=== PATIENT | male | born 1950 | race African-American/Black ===

== ENCOUNTER 2023-06-08 19:19 | Inpatient (IN) | payer OTHER, MEDICARE ==
[~2023-06-08 19:19] MED LIST: Iopamidol-370 76% 500 ML MDV (1 ML CHARGE) ONE
[2023-06-08] MEDS ORDERED: Sodium Chloride 0.9% 100 ML ONE (19:51)
[2023-06-08] MEDS ORDERED: Cefepime 2 GM VIAL ONE (19:51)
[2023-06-08 19:53] LABS: Hematocrit 29.2 % (42.0-52.0); Hemoglobin 9.3 g/dL (14.0-18.0); Manual Diff?? YES; Mean Corpuscular HGB CONC 31.8 g/dL (32.0-36.0); Mean Corpuscular Hemoglobin 25.1 pg (27.0-31.0); Mean Corpuscular Volume 78.7 fl (78.0-98.0); Platelet Count 163 10x3/uL (130-400); RBC Distribution Width 20.3 % (11.5-14.5); Red Blood Cell (RBC) Count 3.71 mill/uL (4.70-6.10); White Blood Cell (WBC) Count 13.5 10x3/uL (4.8-10.8)
[2023-06-08 19:57] LABS: Delete Auto Diff?? YES
[2023-06-08 20:01] LABS: Bacteria/HPF 4+ HPF (None Seen); CAUTI Indications for Culture Fever or rigors; Squamous Epithelial 0-3 HPF (0-3); WBC/HPF Greater Than 50 HPF (0-3)
[2023-06-08 20:08] LABS: Bilirubin Negative (Negative); Blood, Urine 2+ (Negative); Clarity Extra Turbid (Clear); Glucose, Urine (Dipstick) 500 mg/dL (Negative); Ketone, Urine Trace mg/dL (Negative); Leukocyte 500 Leu/uL (Negative); Nitrite Negative (Negative); Protein, Urine (Dipstick) 100 mg/dL (Neg-Trace); Specific Gravity, Urine 1.011 (1.002-1.036); Urobilinogen Normal mg/dL (Less than 2)
[2023-06-08 20:11] LABS: Urine Culture Reflex Yes Yes
[2023-06-08 20:17] LABS: ALT (SGPT) 29 U/L (8-55); AST (SGOT) 39 U/L (5-34); Albumin 3.3 g/dL (3.4-4.8); Alkaline Phosphatase 107 U/L (40-110); Anion Gap 15 mmol/L (10-20); BUN (Urea Nitrogen) 34 mg/dL (8.4-25.7); Bilirubin, Total 0.7 mg/dL (0.2-1.2); Calc. Creatinine Clearance 0 mL/min (70-130); Calcium 8.6 mg/dL (7.8-10.44); Carbon Dioxide 20 mmol/L (23-31); Chloride 108 mmol/L (98-107); Estimated GFR 30; Globulin 3.3 g/dL (2.4-3.5); Glucose 130 mg/dL (83-110); Potassium 4.3 mmol/L (3.5-5.1); Protein, Total 6.6 g/dL (5.8-8.1); Sodium 139 mmol/L (136-145)
[2023-06-08 20:21] LABS: Troponin I 0.129 ng/mL (< 0.028)
[2023-06-08 20:35] LABS: Anisocytosis SLIGHT = 6-15 cells HPF (0-5); Band 19 % (5-11); CellaVision Operator ID LAB.MJL; Hypochromia SLIGHT = 6-15 cells HPF (0-5); Large Platelets 5.1 % (0-5); Lymphocytes 2 % (21-51); Microcytosis SLIGHT = 6-15 cells HPF (0-5); Monocytes 3 % (0-10); Neutrophil 76 % (42-75); Ovalocytes SLIGHT = 2-5 cells HPF (0-1); Platelet Adequacy Comment Platelets Normal; Poikilocytosis MODERATE=16-30 cells HPF (0-5); Polychromasia MODERATE = 3-4 cells HPF (0-2); Schistocytes SLIGHT = 2-5 cells HPF (0-1); Target Cells SLIGHT = 2-5 cells HPF (0-1); Tear Drops SLIGHT = 2-5 cells HPF (0-1); Total Cell Count 99
[2023-06-08] MEDS ORDERED: Vancomycin 1 GM/200 ML (FROZEN) BAG ONE (20:36)
[2023-06-08] MEDS ORDERED: metroNIDAZOLE 500 MG (100 mL) BAG ONE (22:24)
[2023-06-08] MEDS ORDERED: Furosemide 20 MG (2 mL) VIAL ONE (22:24)
[2023-06-08] MEDS ORDERED: Clindamycin/D5W 600 mg/50 ml Premix Bag ONE (23:12)
[2023-06-08] MEDS ORDERED: Ondansetron ODT 4 MG TAB SL PRN (23:15)
[2023-06-08] MEDS ORDERED: Ondansetron PF 4 MG/2 ML Vial IVP PRN (23:15)
[2023-06-08] MEDS ORDERED: Acetaminophen 325 MG TAB PO PRN (23:15)
[2023-06-08] MEDS ORDERED: Clindamycin/D5W 900 MG in Premix 1 BAG IVPB SCH (23:30)
[2023-06-09] MEDS ORDERED: Piperacillin/Tazobactam 3.375 GM in Sodium Chloride 0.9% 100 ML IVPB SCH (01:15)
[2023-06-09 01:24] VITALS: BMI 40.6
[2023-06-09] MEDS ORDERED: Morphine 4 MG/ML VIAL SLOW IVP SCH (05:45)
[2023-06-09] MEDS: Piperacillin/Tazobactam 3.375 GM in Sodium Chloride 0.9% 100 ML IVPB SCH ×3 (06:09→21:02)
[2023-06-09 07:04] LABS: Hematocrit 27.7 % (42.0-52.0); Hemoglobin 8.6 g/dL (14.0-18.0); Manual Diff?? YES; Mean Corpuscular Hemoglobin 24.7 pg (27.0-31.0); Mean Corpuscular Volume 79.6 fl (78.0-98.0); Mean Platelet Volume 11.6 fL (7.4-10.4); Platelet Count 171 10x3/uL (130-400); Red Blood Cell (RBC) Count 3.48 mill/uL (4.70-6.10); White Blood Cell (WBC) Count 13.3 10x3/uL (4.8-10.8)
[2023-06-09 07:08] LABS: Hemoglobin A1c 5.9 % (4.0-6.0)
[2023-06-09 07:27] LABS: Anion Gap 20 mmol/L (10-20); BUN (Urea Nitrogen) 34 mg/dL (8.4-25.7); Calc. Creatinine Clearance 55 mL/min (70-130); Calcium 8.9 mg/dL (7.8-10.44); Carbon Dioxide 14 mmol/L (23-31); Chloride 109 mmol/L (98-107); Estimated GFR 29; Glucose 119 mg/dL (83-110); Magnesium 3.1 mg/dL (1.6-2.6); Phosphorus 2.2 mg/dL (2.3-4.7); Potassium 4.4 mmol/L (3.5-5.1); Sodium 139 mmol/L (136-145)
[2023-06-09 07:42] LABS: Delete Auto Diff?? YES
[2023-06-09] MEDS ORDERED: hydrALAZINE 20 MG/ML VIAL SLOW IVP PRN (08:02)
[2023-06-09] MEDS ORDERED: Ipratropium/Albuterol 3 ML NEB NEB PRN (08:05)
[2023-06-09 08:14] LABS: Anisocytosis SLIGHT = 6-15 cells HPF (0-5); Band 2 % (5-11); Burr Cells SLIGHT = 2-5 cells HPF (0-1); CellaVision Operator ID LAB.NR; Eosinophils 1 % (0-10); Hypochromia MODERATE=16-30 cells HPF (0-5); Lymphocytes 1 % (21-51); Macrocytosis SLIGHT = 6-15 cells HPF (0-5); Monocytes 3 % (0-10); Neutrophil 92 % (42-75); Platelet Adequacy Comment Platelets Normal; Poikilocytosis SLIGHT = 6-15 cells HPF (0-5); Polychromasia SLIGHT = 2-3 cells HPF (0-2); Schistocytes SLIGHT = 2-5 cells HPF (0-1); Target Cells SLIGHT = 2-5 cells HPF (0-1); Total Cell Count 100
[2023-06-09] MEDS: Tamsulosin HCl 0.4 MG CAP PO SCH (08:33)
[2023-06-09] MEDS ORDERED: NIFEdipine XL 30 MG ER.TAB PO SCH (09:00)
[2023-06-09] MEDS: hydrALAZINE 25 MG TAB PO SCH ×4 (09:21→21:00)
[2023-06-09] MEDS: Isosorbide Mononitrate 60 MG ER.TAB PO SCH (09:21)
[2023-06-09] MEDS: Vancomycin (BATCH) 1.75 GM in Premix 1 BAG IVPB SCH (10:16)
[2023-06-09 11:14] LABS: Troponin I 0.092 ng/mL (< 0.028)
[2023-06-09] MEDS ORDERED: PROPOFOL 20 ML ONE (11:48)
[2023-06-09] MEDS ORDERED: PHENYLEPHRINE-NS 100 MCG/ML 10 ML SYRINGE ONE (12:08)
[2023-06-09] MEDS: Morphine 2 MG/ML VIAL SLOW IVP PRN ×3 (14:15→21:40)
[2023-06-09] MEDS ORDERED: Lidocaine 1% PF 5 ML VIAL ONE (14:46)
[2023-06-09] MEDS ORDERED: Calcium Carbonate 500 MG ChewTAB PO PRN (15:02)
[2023-06-09] MEDS ORDERED: Ondansetron ODT 4 MG TAB PO PRN (15:02)
[2023-06-09] MEDS ORDERED: Ondansetron PF 4 MG/2 ML Vial IVP PRN (15:02)
[2023-06-09] MEDS ORDERED: Bupivacaine PF 0.5% 30 ML VIAL ONE (15:46)
[2023-06-09] MEDS ORDERED: EPINEPHrine 1 MG/ML VIAL ONE (15:46)
[2023-06-09] MEDS ORDERED: fentaNYL PF 100 MCG/2 ML SYRINGE ONE (16:03)
[2023-06-09] MEDS ORDERED: SODIUM PHOSPHATE IVPB SCH (16:15)
[2023-06-09] MEDS ORDERED: SODIUM CHLORIDE 0.9% IVPB SCH (16:15)
[2023-06-09] MEDS ORDERED: Ondansetron HCl/PF 4 MG/2 ML Vial IVP PRN (16:28)
[2023-06-09] MEDS ORDERED: Morphine Sulfate 2 MG/ML SYRINGE SLOW IVP PRN (16:28)
[2023-06-09] MEDS ORDERED: PACU-Morphine 4MG/ML VIAL SLOW IVP PRN (16:28)
[2023-06-09] MEDS ORDERED: HYDROmorphone 2 MG/ML VIAL SLOW IVP PRN (16:28)
[2023-06-09] MEDS ORDERED: Promethazine HCl 25 MG/ML VIAL IM PRN (16:28)
[2023-06-09] MEDS ORDERED: Ondansetron PF 4 MG/2 ML Vial ONE (16:29)
[2023-06-09] MEDS ORDERED: fentaNYL 50 mcg/mL 1 mL Vial ONE ×3 (16:55→17:12)
[2023-06-09] MEDS: Sucralfate 1 GM TAB PO SCH ×2 (17:50→21:00)
[2023-06-09 18:46] LABS: Anion Gap 15 mmol/L (10-20); BUN (Urea Nitrogen) 41 mg/dL (8.4-25.7); Calc. Creatinine Clearance 52 mL/min (70-130); Carbon Dioxide 17 mmol/L (23-31); Chloride 109 mmol/L (98-107); Estimated GFR 27; Glucose 109 mg/dL (83-110); Potassium 4.1 mmol/L (3.5-5.1); Sodium 137 mmol/L (136-145)
[2023-06-09] MEDS ORDERED: Dextrose 50% Abboject 50 ML SYRINGE SLOW IVP PRN (18:55)
[2023-06-09] MEDS ORDERED: Dextrose 5% in Water 1,000 ML IV PRN (18:55)
[2023-06-09] MEDS ORDERED: Glucagon 1 MG/ML KIT IM PRN (18:55)
[2023-06-09] MEDS ORDERED: HumaLOG 300 UNITS/3 ML VIAL SC PRN ×2 (18:55)
[2023-06-09] MEDS ORDERED: Sodium Bicarbonate Tab 325 MG TAB PO SCH (21:00)
[2023-06-09] MEDS: Acetaminophen 325 MG TAB PO PRN (21:03)
[2023-06-09] MEDS: NIFEdipine XL 30 MG ER.TAB PO SCH (21:34)
[2023-06-09] MEDS: Senokot S 8.6-50 MG TAB PO SCH (21:34)
[2023-06-10] MEDS: Morphine 2 MG/ML VIAL SLOW IVP PRN ×3 (02:45→21:18)
[2023-06-10 05:11] LABS: Hematocrit 27.1 % (42.0-52.0); Hemoglobin 8.5 g/dL (14.0-18.0); Manual Diff?? YES; Mean Corpuscular HGB CONC 31.4 g/dL (32.0-36.0); Mean Corpuscular Volume 79.7 fl (78.0-98.0); Mean Platelet Volume 10.2 fL (7.4-10.4); Platelet Count 167 10x3/uL (130-400); RBC Distribution Width 21.4 % (11.5-14.5); White Blood Cell (WBC) Count 13.1 10x3/uL (4.8-10.8)
[2023-06-10] MEDS: Piperacillin/Tazobactam 3.375 GM in Sodium Chloride 0.9% 100 ML IVPB SCH ×3 (05:42→21:20)
[2023-06-10 05:50] LABS: Delete Auto Diff?? YES
[2023-06-10 06:01] LABS: ALT (SGPT) 34 U/L (8-55); AST (SGOT) 63 U/L (5-34); Albumin 2.9 g/dL (3.4-4.8); Alkaline Phosphatase 126 U/L (40-110); Anion Gap 14 mmol/L (10-20); BUN (Urea Nitrogen) 45 mg/dL (8.4-25.7); Bilirubin, Total 0.5 mg/dL (0.2-1.2); Calc. Creatinine Clearance 49 mL/min (70-130); Calcium 8.8 mg/dL (7.8-10.44); Carbon Dioxide 18 mmol/L (23-31); Chloride 108 mmol/L (98-107); Estimated GFR 25; Globulin 3.9 g/dL (2.4-3.5); Glucose 114 mg/dL (83-110); Magnesium 3.1 mg/dL (1.6-2.6); Phosphorus 3.2 mg/dL (2.3-4.7); Protein, Total 6.8 g/dL (5.8-8.1); Sodium 136 mmol/L (136-145)
[2023-06-10 06:17] LABS: Anisocytosis SLIGHT = 6-15 cells HPF (0-5); Band 3 % (5-11); CellaVision Operator ID LAB.NR; Eosinophils 3 % (0-10); Hypochromia SLIGHT = 6-15 cells HPF (0-5); Lymphocytes 1 % (21-51); Macrocytosis SLIGHT = 6-15 cells HPF (0-5); Monocytes 2 % (0-10); Neutrophil 91 % (42-75); Platelet Adequacy Comment Platelets Normal; Poikilocytosis SLIGHT = 6-15 cells HPF (0-5); Polychromasia SLIGHT = 2-3 cells HPF (0-2); Schistocytes SLIGHT = 2-5 cells HPF (0-1); Smudge Cells 6.9 %; Total Cell Count 101
[2023-06-10] MEDS: Sucralfate 1 GM TAB PO SCH ×4 (09:03→21:19)
[2023-06-10] MEDS: Aspirin 81 mg Enteric Coated Tablet PO SCH (09:03)
[2023-06-10] MEDS: Saccharomyces boulardii 250 MG CAP PO SCH (09:03)
[2023-06-10] MEDS: Tamsulosin HCl 0.4 MG CAP PO SCH (09:03)
[2023-06-10] MEDS: Heparin 5,000 UNITS/ML VIAL SC SCH ×3 (09:04→21:17)
[2023-06-10] MEDS: Isosorbide Mononitrate 60 MG ER.TAB PO SCH (09:04)
[2023-06-10] MEDS: Senokot S 8.6-50 MG TAB PO SCH ×2 (09:04→21:19)
[2023-06-10] MEDS: Polyethylene Glycol 3350 17 GM Packet PO SCH (09:04)
[2023-06-10] MEDS: hydrALAZINE 25 MG TAB PO SCH ×4 (09:04→21:19)
[2023-06-10] MEDS: NIFEdipine XL 30 MG ER.TAB PO SCH ×2 (09:04→21:57)
[2023-06-10] MEDS: Lactated Ringer's 1,000 ML IV SCH (09:06)
[2023-06-10 10:08] LABS: Vancomycin, Trough 19.9 ug/mL
[2023-06-10] MEDS ORDERED: HYDROcodone/Acetaminophen 5/325 mg Tablet PO SCH (10:45)
[2023-06-10] MEDS ORDERED: Vancomycin (BATCH) 1.25 GM in Premix 1 BAG IVPB SCH (12:00)
[2023-06-10] MEDS: Vancomycin (BATCH) 1.75 GM in Premix 1 BAG IVPB SCH (12:28)
[2023-06-10] MEDS: HYDROcodone/Acetaminophen 5/325 mg Tablet PO PRN (17:32)
[2023-06-11] MEDS: Lactated Ringer's 1,000 ML IV SCH ×2 (01:26→15:53)
[2023-06-11] MEDS: Piperacillin/Tazobactam 3.375 GM in Sodium Chloride 0.9% 100 ML IVPB SCH ×2 (05:37→18:00)
[2023-06-11 05:38] LABS: Manual Diff?? YES; Mean Corpuscular Hemoglobin 25.2 pg (27.0-31.0); Mean Corpuscular Volume 78.6 fl (78.0-98.0); Mean Platelet Volume 10.4 fL (7.4-10.4); Platelet Count 171 10x3/uL (130-400); RBC Distribution Width 21.2 % (11.5-14.5); Red Blood Cell (RBC) Count 3.18 mill/uL (4.70-6.10); White Blood Cell (WBC) Count 14.9 10x3/uL (4.8-10.8)
[2023-06-11 05:40] LABS: Delete Auto Diff?? YES
[2023-06-11 06:05] LABS: Albumin 2.7 g/dL (3.4-4.8); BUN (Urea Nitrogen) 51 mg/dL (8.4-25.7); BUN/Creatinine Ratio 18.09; Calc. Creatinine Clearance 45 mL/min (70-130); Calcium 8.8 mg/dL (7.8-10.44); Carbon Dioxide 19 mmol/L (23-31); Chloride 104 mmol/L (98-107); Estimated GFR 23; Glucose 148 mg/dL (83-110); Phosphorus 2.8 mg/dL (2.3-4.7); Potassium 4.2 mmol/L (3.5-5.1); Sodium 131 mmol/L (136-145)
[2023-06-11 06:09] LABS: Anisocytosis SLIGHT = 6-15 cells HPF (0-5); Band 10 % (5-11); CellaVision Operator ID LAB.CLH1; Elliptocytes SLIGHT = 2-5 cells HPF (0-1); Eosinophils 5 % (0-10); Hypochromia SLIGHT = 6-15 cells HPF (0-5); Lymphocytes 4 % (21-51); Metamyelocyte 1 % (0-0); Microcytosis SLIGHT = 6-15 cells HPF (0-5); Monocytes 3 % (0-10); Neutrophil 76 % (42-75); Platelet Adequacy Comment Platelets Normal; Poikilocytosis SLIGHT = 6-15 cells HPF (0-5); Polychromasia SLIGHT = 2-3 cells HPF (0-2); Reactive Lymphocytes 1 % (0-10); Target Cells SLIGHT = 2-5 cells HPF (0-1); Total Cell Count 101
[2023-06-11 06:39] LABS: Anion Gap 12 mmol/L (10-20)
[2023-06-11] MEDS: Senokot S 8.6-50 MG TAB PO SCH ×2 (09:27→22:36)
[2023-06-11] MEDS: Saccharomyces boulardii 250 MG CAP PO SCH (09:27)
[2023-06-11] MEDS: Sucralfate 1 GM TAB PO SCH ×3 (09:28→22:36)
[2023-06-11] MEDS: Aspirin 81 mg Enteric Coated Tablet PO SCH (09:28)
[2023-06-11] MEDS: HYDROcodone/Acetaminophen 5/325 mg Tablet PO PRN ×3 (09:28→22:34)
[2023-06-11] MEDS: Tamsulosin HCl 0.4 MG CAP PO SCH (09:28)
[2023-06-11] MEDS: Polyethylene Glycol 3350 17 GM Packet PO SCH (09:29)
[2023-06-11] MEDS: Heparin 5,000 UNITS/ML VIAL SC SCH ×2 (09:38→22:42)
[2023-06-11] MEDS: NIFEdipine XL 30 MG ER.TAB PO SCH (09:44)
[2023-06-11] MEDS: Isosorbide Mononitrate 60 MG ER.TAB PO SCH (09:44)
[2023-06-11] MEDS: hydrALAZINE 25 MG TAB PO SCH (09:44)
[2023-06-11] MEDS: Bisacodyl 10 MG SUPP PR SCH ×2 (11:01→22:37)
[2023-06-11 13:19] LABS: Iron 19 ug/dL (65-175); Iron Binding Capacity, Total 154 mcg/dL (261-462)
[2023-06-11] MEDS: Albumin 25% 25 GM (100 mL) BOT IVPB SCH ×2 (13:36→22:33)
[2023-06-11 14:06] LABS: Bilirubin Negative (Negative); Blood, Urine Large (Negative); Glucose, Urine (Dipstick) Negative (Negative); Ketone, Urine Negative (Negative); Leukocyte Large (Negative); Nitrite Negative (Negative); Protein, Urine (Dipstick) 30 mg/dL (Neg-Trace); Specific Gravity, Urine 1.015 (1.005-1.030); Urobilinogen 0.2 mg/dL (Less than 2); pH, Urine 5.5 (5.0-9.0)
[2023-06-11 14:41] LABS: Clarity Cloudy (Clear)
[2023-06-11 14:42] LABS: Bacteria/HPF 3+ HPF (None Seen); Squamous Epithelial None Seen HPF (0-3); WBC/HPF 21-50 HPF (0-3)
[2023-06-11 14:43] LABS: Yeast-Budding 1+ HPF (None Seen)
[2023-06-11 14:59] LABS: Creatinine, Urine 71.33 mg/dL (63-166)
[2023-06-11] MEDS: Vancomycin (BATCH) 1.25 GM in Premix 1 BAG IVPB SCH (15:48)
[2023-06-12] MEDS: Piperacillin/Tazobactam 3.375 GM in Sodium Chloride 0.9% 100 ML IVPB SCH ×4 (00:18→16:56)
[2023-06-12] MEDS: Sucralfate 1 GM TAB PO SCH ×5 (00:36→20:36)
[2023-06-12 01:36] LABS: Base Excess -5.2 mEq/L (-2.0 to +3.0); Calcium, Ionized (venous) 1.05 mmol/L (1.16-1.32); Chloride (VBG) 104 mmol/L (98-106); Hematocrit-VBG 24 % (42.0-52.0); Hemoglobin (Hb) 8.2 g/dL (12.6-17.4); Potassium (VBG) 4.23 mmol/L (3.70-5.30); Sodium 135 mmol/L (133-146); pH (venous) 7.501 (7.32-7.43)
[2023-06-12 01:43] LABS: Hematocrit 22.4 % (42.0-52.0); Hemoglobin 7.4 g/dL (14.0-18.0); Manual Diff?? YES; Mean Corpuscular Hemoglobin 25.3 pg (27.0-31.0); Mean Corpuscular Volume 76.5 fl (78.0-98.0); Mean Platelet Volume 9.5 fL (7.4-10.4); Platelet Count 139 10x3/uL (130-400); Red Blood Cell (RBC) Count 2.93 mill/uL (4.70-6.10); White Blood Cell (WBC) Count 12.9 10x3/uL (4.8-10.8)
[2023-06-12 01:49] LABS: Delete Auto Diff?? YES
[2023-06-12 02:08] LABS: ALT (SGPT) 39 U/L (8-55); AST (SGOT) 81 U/L (5-34); Albumin 2.9 g/dL (3.4-4.8); Alkaline Phosphatase 257 U/L (40-110); Anion Gap 20 mmol/L (10-20); BUN (Urea Nitrogen) 57 mg/dL (8.4-25.7); Band 14 % (5-11); Bilirubin, Total 0.7 mg/dL (0.2-1.2); Calc. Creatinine Clearance 39 mL/min (70-130); Calcium 8.8 mg/dL (7.8-10.44); Carbon Dioxide 15 mmol/L (23-31); CellaVision Operator ID LAB.CLH1; Chloride 105 mmol/L (98-107); Elliptocytes SLIGHT = 2-5 cells HPF (0-1); Estimated GFR 19; Globulin 3.7 g/dL (2.4-3.5); Glucose 135 mg/dL (83-110); Hypochromia SLIGHT = 6-15 cells HPF (0-5); Large Platelets 6.9 % (0-5); Magnesium 2.9 mg/dL (1.6-2.6); Microcytosis SLIGHT = 6-15 cells HPF (0-5); Monocytes 1 % (0-10); Neutrophil 82 % (42-75); Platelet Adequacy Comment Platelets Normal; Poikilocytosis SLIGHT = 6-15 cells HPF (0-5); Polychromasia SLIGHT = 2-3 cells HPF (0-2); Potassium 4.6 mmol/L (3.5-5.1); Protein, Total 6.6 g/dL (5.8-8.1); Reactive Lymphocytes 3 % (0-10); Sodium 135 mmol/L (136-145); Target Cells SLIGHT = 2-5 cells HPF (0-1); Total Cell Count 102
[2023-06-12] MEDS: Albumin 25% 25 GM (100 mL) BOT IVPB SCH ×2 (04:40→10:07)
[2023-06-12] MEDS: Lactated Ringer's 1,000 ML IV SCH (05:45)
[2023-06-12 06:33] LABS: Hematocrit 23.6 % (42.0-52.0); Hemoglobin 7.6 g/dL (14.0-18.0); Manual Diff?? YES; Mean Corpuscular HGB CONC 32.2 g/dL (32.0-36.0); Mean Corpuscular Hemoglobin 25.1 pg (27.0-31.0); Mean Corpuscular Volume 77.9 fl (78.0-98.0); Mean Platelet Volume 9.6 fL (7.4-10.4); Platelet Count 148 10x3/uL (130-400); RBC Distribution Width 21.3 % (11.5-14.5); Red Blood Cell (RBC) Count 3.03 mill/uL (4.70-6.10); White Blood Cell (WBC) Count 13.7 10x3/uL (4.8-10.8)
[2023-06-12 06:39] LABS: Delete Auto Diff?? YES
[2023-06-12 06:57] LABS: Albumin 3.3 g/dL (3.4-4.8); Anion Gap 18 mmol/L (10-20); BUN (Urea Nitrogen) 58 mg/dL (8.4-25.7); BUN/Creatinine Ratio 16.86; Calc. Creatinine Clearance 37 mL/min (70-130); Calcium 9.2 mg/dL (7.8-10.44); Carbon Dioxide 17 mmol/L (23-31); Chloride 104 mmol/L (98-107); Estimated GFR 18; Glucose 130 mg/dL (83-110); Phosphorus 2.3 mg/dL (2.3-4.7); Potassium 4.1 mmol/L (3.5-5.1); Sodium 135 mmol/L (136-145)
[2023-06-12] MEDS: Nitroglycerin 0.4 MG TAB (25 Tab Bottle) SL PRN ×3 (07:09→07:43)
[2023-06-12 07:10] LABS: Anisocytosis MODERATE=16-30 cells HPF (0-5); Band 2 % (5-11); CellaVision Operator ID lab.dlt; Eosinophils 1 % (0-10); Hypochromia SLIGHT = 6-15 cells HPF (0-5); Large Platelets 5.8 % (0-5); Lymphocytes 2 % (21-51); Metamyelocyte 1 % (0-0); Monocytes 2 % (0-10); Neutrophil 92 % (42-75); Ovalocytes SLIGHT = 2-5 cells HPF (0-1); Platelet Adequacy Comment Platelets Normal; Poikilocytosis MODERATE=16-30 cells HPF (0-5); Polychromasia SLIGHT = 2-3 cells HPF (0-2); Schistocytes SLIGHT = 2-5 cells HPF (0-1); Target Cells SLIGHT = 2-5 cells HPF (0-1); Total Cell Count 103
[2023-06-12] MEDS: Morphine 2 MG/ML VIAL SLOW IVP PRN ×2 (07:59→15:39)
[2023-06-12] MEDS ORDERED: HYDROmorphone 0.5 MG/0.5 ML SYRINGE SLOW IVP SCH (08:00)
[2023-06-12] MEDS ORDERED: FLU VACC QS2023(65UP)/MF59C/PF 60 MCG/0.5 ML SYRINGE IM ONE (09:00)
[2023-06-12] MEDS ORDERED: MD-Gastroview 120 ML BOT ONE (09:58)
[2023-06-12] MEDS: Aspirin 81 mg Enteric Coated Tablet PO SCH (10:02)
[2023-06-12] MEDS: Saccharomyces boulardii 250 MG CAP PO SCH (10:02)
[2023-06-12] MEDS: Tamsulosin HCl 0.4 MG CAP PO SCH (10:02)
[2023-06-12] MEDS: Senokot S 8.6-50 MG TAB PO SCH ×2 (10:02→20:36)
[2023-06-12] MEDS: Bisacodyl 10 MG SUPP PR SCH ×2 (10:02→20:36)
[2023-06-12] MEDS: Heparin 5,000 UNITS/ML VIAL SC SCH ×2 (10:02→20:41)
[2023-06-12] MEDS: Polyethylene Glycol 3350 17 GM Packet PO SCH (10:03)
[2023-06-12] MEDS: EPOETIN ALFA-EPBX (ESRD) 10,000 UNITS/ML VIAL SC SCH (10:06)
[2023-06-12] MEDS ORDERED: Albumin 25% 25 GM (100 mL) BOT IVPB SCH (11:00)
[2023-06-12 12:57] LABS: Vancomycin, Trough 30.4 ug/mL
[2023-06-12] MEDS ORDERED: Vancomycin Dose by Levels Sliding Scale (Wt > 99) FS SCH (13:15)
[2023-06-12] MEDS: Sodium Bicarbonate 150 MEQ in Dextrose 5% in Water 1,000 ML IV SCH (13:30)
[2023-06-12] MEDS: Vancomycin (BATCH) 1.25 GM in Premix 1 BAG IVPB SCH (15:27)
[2023-06-12] MEDS: Iron, Sodium Ferric Gluconate 250 MG in Sodium Chloride 0.9% 250 ML 250 ML IVPB SCH (16:55)
[2023-06-13] MEDS: Piperacillin/Tazobactam 3.375 GM in Sodium Chloride 0.9% 100 ML IVPB SCH ×3 (00:40→16:42)
[2023-06-13 04:50] LABS: Hematocrit 24.5 % (42.0-52.0); Manual Diff?? YES; Mean Corpuscular HGB CONC 32.7 g/dL (32.0-36.0); Mean Corpuscular Hemoglobin 24.6 pg (27.0-31.0); Mean Platelet Volume 10.6 fL (7.4-10.4); Platelet Count 164 10x3/uL (130-400); RBC Distribution Width 21.2 % (11.5-14.5); Red Blood Cell (RBC) Count 3.25 mill/uL (4.70-6.10); White Blood Cell (WBC) Count 14.8 10x3/uL (4.8-10.8)
[2023-06-13 04:59] LABS: Delete Auto Diff?? YES; Mean Corpuscular Volume 75.4 fl (78.0-98.0)
[2023-06-13 05:27] LABS: Albumin 3.1 g/dL (3.4-4.8); Anion Gap 16 mmol/L (10-20); BUN (Urea Nitrogen) 61 mg/dL (8.4-25.7); Band 17 % (5-11); Calc. Creatinine Clearance 35 mL/min (70-130); Calcium 9.1 mg/dL (7.8-10.44); Carbon Dioxide 19 mmol/L (23-31); CellaVision Operator ID LAB.CLH1; Chloride 105 mmol/L (98-107); Eosinophils 2 % (0-10); Estimated GFR 17; Glucose 195 mg/dL (83-110); Hypochromia SLIGHT = 6-15 cells HPF (0-5); Large Platelets 0.9 % (0-5); Lymphocytes 2 % (21-51); Microcytosis SLIGHT = 6-15 cells HPF (0-5); Monocytes 4 % (0-10); Neutrophil 75 % (42-75); Nucleated RBC (Manual Ct) 1 % (0); Phosphorus 1.9 mg/dL (2.3-4.7); Platelet Adequacy Comment Platelets Normal; Poikilocytosis SLIGHT = 6-15 cells HPF (0-5); Polychromasia SLIGHT = 2-3 cells HPF (0-2); Potassium 3.8 mmol/L (3.5-5.1); Reactive Lymphocytes 1 % (0-10); Sodium 136 mmol/L (136-145); Target Cells SLIGHT = 2-5 cells HPF (0-1); Total Cell Count 106
[2023-06-13] MEDS: Senokot S 8.6-50 MG TAB PO SCH ×2 (08:38→20:44)
[2023-06-13] MEDS: Tamsulosin HCl 0.4 MG CAP PO SCH (08:41)
[2023-06-13] MEDS: Aspirin 81 mg Enteric Coated Tablet PO SCH (08:41)
[2023-06-13] MEDS: Saccharomyces boulardii 250 MG CAP PO SCH (08:41)
[2023-06-13] MEDS: Bisacodyl 10 MG SUPP PR SCH ×2 (08:41→20:44)
[2023-06-13] MEDS: Sucralfate 1 GM TAB PO SCH ×4 (08:41→20:44)
[2023-06-13] MEDS: Heparin 5,000 UNITS/ML VIAL SC SCH ×2 (08:42→20:45)
[2023-06-13] MEDS: Iron, Sodium Ferric Gluconate 250 MG in Sodium Chloride 0.9% 250 ML 250 ML IVPB SCH (08:42)
[2023-06-13] MEDS: Polyethylene Glycol 3350 17 GM Packet PO SCH (08:42)
[2023-06-13] MEDS: PHOS-NAK 1 PKT PACK PO SCH ×2 (08:42→20:44)
[2023-06-13] MEDS: Albumin 25% 25 GM (100 mL) BOT IVPB SCH ×2 (11:03→17:01)
[2023-06-13] MEDS: Sodium Bicarbonate 150 MEQ in Dextrose 5% in Water 1,000 ML IV SCH ×3 (12:03→23:02)
[2023-06-14] MEDS: Piperacillin/Tazobactam 3.375 GM in Sodium Chloride 0.9% 100 ML IVPB SCH ×3 (00:56→16:06)
[2023-06-14] MEDS: HYDROcodone/Acetaminophen 5/325 mg Tablet PO PRN ×3 (01:00→14:03)
[2023-06-14] MEDS: Sodium Bicarbonate 150 MEQ in Dextrose 5% in Water 1,000 ML IV SCH ×3 (02:41→17:40)
[2023-06-14 05:47] LABS: Anion Gap 16 mmol/L (10-20); BUN (Urea Nitrogen) 60 mg/dL (8.4-25.7); Calc. Creatinine Clearance 35 mL/min (70-130); Calcium 8.9 mg/dL (7.8-10.44); Carbon Dioxide 22 mmol/L (23-31); Chloride 106 mmol/L (98-107); Estimated GFR 17; Glucose 173 mg/dL (83-110); Phosphorus 1.9 mg/dL (2.3-4.7); Potassium 3.4 mmol/L (3.5-5.1); Sodium 141 mmol/L (136-145)
[2023-06-14] MEDS ORDERED: Potassium Phosphate 30 MMOL in Sodium Chloride 0.9% 250 ML 250 ML IVPB SCH (06:45)
[2023-06-14] MEDS: Tamsulosin HCl 0.4 MG CAP PO SCH (08:41)
[2023-06-14] MEDS: Aspirin 81 mg Enteric Coated Tablet PO SCH (08:41)
[2023-06-14] MEDS: Sucralfate 1 GM TAB PO SCH ×4 (08:41→21:07)
[2023-06-14] MEDS: Saccharomyces boulardii 250 MG CAP PO SCH (08:42)
[2023-06-14] MEDS: Heparin 5,000 UNITS/ML VIAL SC SCH ×2 (08:44→21:07)
[2023-06-14] MEDS: Polyethylene Glycol 3350 17 GM Packet PO SCH (08:48)
[2023-06-14] MEDS: Bisacodyl 10 MG SUPP PR SCH ×2 (08:48→21:07)
[2023-06-14] MEDS: Senokot S 8.6-50 MG TAB PO SCH ×2 (08:49→21:08)
[2023-06-14] MEDS ORDERED: Albumin 25% 25 GM (100 mL) BOT IVPB SCH (09:15)
[2023-06-14] MEDS: Morphine 2 MG/ML VIAL SLOW IVP PRN (09:19)
[2023-06-14] MEDS: Iron, Sodium Ferric Gluconate 250 MG in Sodium Chloride 0.9% 250 ML 250 ML IVPB SCH ×2 (11:05→13:59)
[2023-06-14] MEDS: Albumin 25% 25 GM (100 mL) BOT IVPB SCH ×2 (16:06→21:07)
[2023-06-15] MEDS: Sodium Bicarbonate 150 MEQ in Dextrose 5% in Water 1,000 ML IV SCH (01:15)
[2023-06-15] MEDS: Piperacillin/Tazobactam 3.375 GM in Sodium Chloride 0.9% 100 ML IVPB SCH ×3 (01:15→17:03)
[2023-06-15 04:04] LABS: Hematocrit 21.3 % (42.0-52.0); Hemoglobin 7.1 g/dL (14.0-18.0); Mean Corpuscular HGB CONC 33.3 g/dL (32.0-36.0); Mean Corpuscular Hemoglobin 24.7 pg (27.0-31.0); Mean Platelet Volume 9.5 fL (7.4-10.4); Platelet Count 116 10x3/uL (130-400); RBC Distribution Width 20.3 % (11.5-14.5); Red Blood Cell (RBC) Count 2.88 mill/uL (4.70-6.10); White Blood Cell (WBC) Count 13.8 10x3/uL (4.8-10.8)
[2023-06-15 04:15] LABS: Anion Gap 17 mmol/L (10-20); BUN (Urea Nitrogen) 58 mg/dL (8.4-25.7); Calc. Creatinine Clearance 38 mL/min (70-130); Calcium 8.6 mg/dL (7.8-10.44); Carbon Dioxide 27 mmol/L (23-31); Chloride 101 mmol/L (98-107); Estimated GFR 19; Glucose 181 mg/dL (83-110); Magnesium 2.7 mg/dL (1.6-2.6); Potassium 3.2 mmol/L (3.5-5.1); Sodium 142 mmol/L (136-145)
[2023-06-15] MEDS: Albumin 25% 25 GM (100 mL) BOT IVPB SCH ×2 (04:37→11:37)
[2023-06-15] MEDS: HYDROcodone/Acetaminophen 5/325 mg Tablet PO PRN ×3 (04:37→21:19)
[2023-06-15] MEDS ORDERED: Potassium Chloride 20 MEQ TAB PO SCH (07:00)
[2023-06-15 07:29] LABS: Phosphorus 2.7 mg/dL (2.3-4.7)
[2023-06-15] MEDS: Tamsulosin HCl 0.4 MG CAP PO SCH (08:44)
[2023-06-15] MEDS: Sucralfate 1 GM TAB PO SCH ×4 (08:44→21:07)
[2023-06-15] MEDS: Saccharomyces boulardii 250 MG CAP PO SCH (08:44)
[2023-06-15] MEDS: Heparin 5,000 UNITS/ML VIAL SC SCH ×2 (08:45→22:17)
[2023-06-15] MEDS ORDERED: Potassium Phosphate 30 MMOL in Sodium Chloride 0.9% 250 ML 250 ML IVPB SCH (09:00)
[2023-06-15] MEDS: Polyethylene Glycol 3350 17 GM Packet PO SCH (10:24)
[2023-06-15] MEDS: Bisacodyl 10 MG SUPP PR SCH ×2 (10:24→21:07)
[2023-06-15] MEDS: Senokot S 8.6-50 MG TAB PO SCH ×2 (10:25→21:07)
[2023-06-15] MEDS: Aspirin 81 mg Enteric Coated Tablet PO SCH (10:28)
[2023-06-15] MEDS ORDERED: Albumin 25% 25 GM (100 mL) BOT IVPB SCH (13:00)
[2023-06-15] MEDS: Iron, Sodium Ferric Gluconate 250 MG in Sodium Chloride 0.9% 250 ML 250 ML IVPB SCH (15:18)
[2023-06-16] MEDS: Piperacillin/Tazobactam 3.375 GM in Sodium Chloride 0.9% 100 ML IVPB SCH ×3 (01:00→16:34)
[2023-06-16 03:14] LABS: Hematocrit 23.7 % (42.0-52.0); Hemoglobin 7.9 g/dL (14.0-18.0)
[2023-06-16 04:39] LABS: Anion Gap 19 mmol/L (10-20); BUN (Urea Nitrogen) 57 mg/dL (8.4-25.7); Calc. Creatinine Clearance 35 mL/min (70-130); Calcium 8.9 mg/dL (7.8-10.44); Carbon Dioxide 27 mmol/L (23-31); Chloride 102 mmol/L (98-107); Estimated GFR 17; Glucose 129 mg/dL (83-110); Potassium 3.5 mmol/L (3.5-5.1); Sodium 144 mmol/L (136-145)
[2023-06-16] MEDS: HYDROcodone/Acetaminophen 5/325 mg Tablet PO PRN ×3 (05:10→21:53)
[2023-06-16] MEDS: Aspirin 81 mg Enteric Coated Tablet PO SCH (08:06)
[2023-06-16] MEDS: Saccharomyces boulardii 250 MG CAP PO SCH (08:07)
[2023-06-16] MEDS: Sucralfate 1 GM TAB PO SCH ×4 (08:07→21:32)
[2023-06-16] MEDS: Heparin 5,000 UNITS/ML VIAL SC SCH ×2 (08:07→21:30)
[2023-06-16] MEDS: Tamsulosin HCl 0.4 MG CAP PO SCH (08:07)
[2023-06-16] MEDS: Senokot S 8.6-50 MG TAB PO SCH (08:08)
[2023-06-16] MEDS: Polyethylene Glycol 3350 17 GM Packet PO SCH (08:08)
[2023-06-16] MEDS: Bisacodyl 10 MG SUPP PR SCH ×2 (08:08→23:10)
[2023-06-16] MEDS: Morphine 2 MG/ML VIAL SLOW IVP PRN (09:36)
[2023-06-16] MEDS: hydrALAZINE 25 MG TAB PO SCH ×3 (12:03→21:31)
[2023-06-16] MEDS ORDERED: Albumin 25% 25 GM (100 mL) BOT IVPB SCH (14:00)
[2023-06-16] MEDS: Albumin 25% 25 GM (100 mL) BOT IVPB SCH (14:40)
[2023-06-16] MEDS ORDERED: Polyethylene Glycol 3350 17 GM Packet PO PRN (15:02)
[2023-06-16] MEDS: NIFEdipine XL 30 MG ER.TAB PO SCH (21:30)
[2023-06-17] MEDS: Albumin 25% 25 GM (100 mL) BOT IVPB SCH ×3 (00:15→12:04)
[2023-06-17] MEDS: Piperacillin/Tazobactam 3.375 GM in Sodium Chloride 0.9% 100 ML IVPB SCH ×4 (01:07→23:17)
[2023-06-17] MEDS: HYDROcodone/Acetaminophen 5/325 mg Tablet PO PRN (06:09)
[2023-06-17 07:06] LABS: Anion Gap 23 mmol/L (10-20); BUN (Urea Nitrogen) 56 mg/dL (8.4-25.7); CRP (Inflammatory) 26.35 mg/dL (= or < 0.5); Calc. Creatinine Clearance 37 mL/min (70-130); Calcium 8.6 mg/dL (7.8-10.44); Carbon Dioxide 20 mmol/L (23-31); Chloride 102 mmol/L (98-107); Estimated GFR 18; Glucose 123 mg/dL (83-110); Potassium 3.7 mmol/L (3.5-5.1); Sodium 141 mmol/L (136-145)
[2023-06-17 07:21] LABS: Magnesium 2.4 mg/dL (1.6-2.6)
[2023-06-17] MEDS: Aspirin 81 mg Enteric Coated Tablet PO SCH (08:09)
[2023-06-17] MEDS: Sucralfate 1 GM TAB PO SCH ×4 (08:09→21:48)
[2023-06-17] MEDS: Bisacodyl 10 MG SUPP PR SCH ×2 (08:09→21:49)
[2023-06-17] MEDS: Saccharomyces boulardii 250 MG CAP PO SCH (08:09)
[2023-06-17] MEDS: Heparin 5,000 UNITS/ML VIAL SC SCH ×2 (08:09→21:49)
[2023-06-17] MEDS: Tamsulosin HCl 0.4 MG CAP PO SCH (08:09)
[2023-06-17] MEDS: Sodium Bicarbonate Tab 325 MG TAB PO SCH ×2 (08:17→21:47)
[2023-06-17 08:32] LABS: Hematocrit 24.8 % (42.0-52.0); Hemoglobin 8.2 g/dL (14.0-18.0); Manual Diff?? YES; Mean Corpuscular HGB CONC 33.1 g/dL (32.0-36.0); Mean Corpuscular Hemoglobin 25.9 pg (27.0-31.0); Mean Corpuscular Volume 78.2 fl (78.0-98.0); Platelet Count 150 10x3/uL (130-400); Red Blood Cell (RBC) Count 3.17 mill/uL (4.70-6.10); White Blood Cell (WBC) Count 14.8 10x3/uL (4.8-10.8)
[2023-06-17 08:41] LABS: Delete Auto Diff?? YES
[2023-06-17 09:43] LABS: Anisocytosis MODERATE=16-30 cells HPF (0-5); Band 3 % (5-11); CellaVision Operator ID LAB.CMB; Eosinophils 1 % (0-10); Hypochromia SLIGHT = 6-15 cells HPF (0-5); Large Platelets 6.7 % (0-5); Lymphocytes 6 % (21-51); Macrocytosis SLIGHT = 6-15 cells HPF (0-5); Metamyelocyte 1 % (0-0); Monocytes 4 % (0-10); Neutrophil 83 % (42-75); Ovalocytes MODERATE= 6-15 cells HPF (0-1); Platelet Adequacy Comment Significant decrease; Polychromasia MARKED = >4 cells HPF (0-2); RBC Morphology 2; Reactive Lymphocytes 2 % (0-10); Target Cells SLIGHT = 2-5 cells HPF (0-1); Total Cell Count 119
[2023-06-17] MEDS: Pregabalin 50 MG CAP PO SCH (21:47)
[2023-06-18] MEDS: Sucralfate 1 GM TAB PO SCH ×4 (06:51→21:37)
[2023-06-18 07:37] LABS: Hemoglobin 8.1 g/dL (14.0-18.0); Manual Diff?? YES; Mean Corpuscular HGB CONC 32.4 g/dL (32.0-36.0); Mean Corpuscular Hemoglobin 25.8 pg (27.0-31.0); Mean Corpuscular Volume 79.6 fl (78.0-98.0); Platelet Count 138 10x3/uL (130-400); Red Blood Cell (RBC) Count 3.14 mill/uL (4.70-6.10); White Blood Cell (WBC) Count 16.7 10x3/uL (4.8-10.8)
[2023-06-18 08:04] LABS: Albumin 3.3 g/dL (3.4-4.8); Anion Gap 19 mmol/L (10-20); BUN (Urea Nitrogen) 58 mg/dL (8.4-25.7); BUN/Creatinine Ratio 17.06; Calc. Creatinine Clearance 37 mL/min (70-130); Calcium 8.7 mg/dL (7.8-10.44); Carbon Dioxide 24 mmol/L (23-31); Chloride 103 mmol/L (98-107); Estimated GFR 18; Glucose 126 mg/dL (83-110); Phosphorus 3.9 mg/dL (2.3-4.7); Potassium 3.1 mmol/L (3.5-5.1); Sodium 143 mmol/L (136-145)
[2023-06-18 08:05] LABS: Delete Auto Diff?? YES
[2023-06-18] MEDS ORDERED: Potassium Chloride 20 MEQ TAB PO SCH (08:30)
[2023-06-18 08:42] LABS: Anisocytosis MODERATE=16-30 cells HPF (0-5); Band 4 % (5-11); Burr Cells SLIGHT = 2-5 cells HPF (0-1); CellaVision Operator ID LAB.KW3; Large Platelets 5.1 % (0-5); Lymphocytes 4 % (21-51); Monocytes 7 % (0-10); Neutrophil 84 % (42-75); Platelet Adequacy Comment Platelets Normal; Poikilocytosis MODERATE=16-30 cells HPF (0-5); Polychromasia MODERATE = 3-4 cells HPF (0-2); Reactive Lymphocytes 1 % (0-10); Schistocytes SLIGHT = 2-5 cells HPF (0-1); Target Cells MODERATE= 6-15 cells HPF (0-1); Total Cell Count 99
[2023-06-18] MEDS: Piperacillin/Tazobactam 3.375 GM in Sodium Chloride 0.9% 100 ML IVPB SCH ×2 (08:42→15:41)
[2023-06-18] MEDS: Sodium Bicarbonate Tab 325 MG TAB PO SCH ×2 (08:42→21:37)
[2023-06-18] MEDS: Aspirin 81 mg Enteric Coated Tablet PO SCH (08:43)
[2023-06-18] MEDS: Pregabalin 50 MG CAP PO SCH (08:43)
[2023-06-18] MEDS: Tamsulosin HCl 0.4 MG CAP PO SCH (08:43)
[2023-06-18] MEDS: Saccharomyces boulardii 250 MG CAP PO SCH (08:43)
[2023-06-18] MEDS: Bisacodyl 10 MG SUPP PR SCH (08:44)
[2023-06-18] MEDS: Heparin 5,000 UNITS/ML VIAL SC SCH ×2 (08:44→21:00)
[2023-06-18] MEDS: Albumin 25% 25 GM (100 mL) BOT IVPB SCH ×2 (11:50→17:59)
[2023-06-18] MEDS: HYDROcodone/Acetaminophen 5/325 mg Tablet PO PRN (12:31)
[2023-06-18 13:54] LABS: Actual Bicarbonate (HCO3a) 23.9 mEq/L (22-28); CO2 Tension 35.6 mmHg (35.0-45.0); Calcium, Ionized (arterial) 1.08 mmol/L (1.12-1.30); Carboxyhemoglobin (COHb) 1.3 gm% (0.0-3.0); Hematocrit-ABG 23 % (42.0-52.0); Hemoglobin (Hb) 7.9 g/dL (14.0-18.0); O2 Tension (PaO2), arterial 67.9 mmHg (> 70.0); Potassium - ABG Lab 3.03 mmol/L (3.70-5.30); pH, Arterial 7.445 (7.35-7.45)
[2023-06-18 13:55] LABS: Puncture Site RRA
[2023-06-18] MEDS: Morphine 2 MG/ML VIAL SLOW IVP PRN ×2 (15:38→21:43)
[2023-06-19] MEDS: Piperacillin/Tazobactam 3.375 GM in Sodium Chloride 0.9% 100 ML IVPB SCH ×4 (01:42→23:32)
[2023-06-19] MEDS: Albumin 25% 25 GM (100 mL) BOT IVPB SCH ×2 (01:42→05:30)
[2023-06-19 05:25] LABS: #Eosinphils 0.2 thou/uL (0.0-0.7); #Monocytes 0.4 thou/uL (0.11-0.59); #Neutrophils 11.2 thou/uL (1.40-6.50); %Basophils 0.2 % (0.0-1.0); %Eosinophils 1.2 % (0.0-10.0); %Lymphocytes 5.1 % (21.0-51.0); %Monocytes 3.3 % (0.0-10.0); %Neutrophils 85.8 % (42.0-75.0); Hemoglobin 6.7 g/dL (14.0-18.0); Mean Corpuscular HGB CONC 31.9 g/dL (32.0-36.0); Mean Corpuscular Hemoglobin 25.7 pg (27.0-31.0); Mean Corpuscular Volume 80.5 fl (78.0-98.0); Platelet Count 99 10x3/uL (130-400); RBC Distribution Width 20.6 % (11.5-14.5); Red Blood Cell (RBC) Count 2.61 mill/uL (4.70-6.10)
[2023-06-19 05:45] LABS: Albumin 3.4 g/dL (3.4-4.8); Anion Gap 15 mmol/L (10-20); BUN (Urea Nitrogen) 58 mg/dL (8.4-25.7); BUN/Creatinine Ratio 18.24; Calc. Creatinine Clearance 40 mL/min (70-130); Calcium 8.7 mg/dL (7.8-10.44); Carbon Dioxide 27 mmol/L (23-31); Chloride 104 mmol/L (98-107); Estimated GFR 20; Glucose 143 mg/dL (83-110); Phosphorus 3.6 mg/dL (2.3-4.7); Sodium 143 mmol/L (136-145)
[2023-06-19] MEDS: Morphine 2 MG/ML VIAL SLOW IVP PRN (07:56)
[2023-06-19] MEDS: Spironolactone 25 MG TAB PO SCH (08:04)
[2023-06-19] MEDS: Potassium Chloride 20 MEQ TAB PO SCH ×2 (08:04→16:33)
[2023-06-19] MEDS: Saccharomyces boulardii 250 MG CAP PO SCH (08:04)
[2023-06-19] MEDS: Sodium Bicarbonate Tab 325 MG TAB PO SCH ×2 (08:04→20:12)
[2023-06-19] MEDS: Sucralfate 1 GM TAB PO SCH ×4 (08:04→20:12)
[2023-06-19] MEDS: Tamsulosin HCl 0.4 MG CAP PO SCH (08:04)
[2023-06-19] MEDS: Pregabalin 50 MG CAP PO SCH (08:05)
[2023-06-19] MEDS: Aspirin 81 mg Enteric Coated Tablet PO SCH (08:05)
[2023-06-19] MEDS: EPOETIN ALFA-EPBX (ESRD) 10,000 UNITS/ML VIAL SC SCH (11:04)
[2023-06-19] MEDS: HYDROcodone/Acetaminophen 5/325 mg Tablet PO PRN (20:12)
[2023-06-20 00:40] LABS: #Eosinphils 0.2 thou/uL (0.0-0.7); #Monocytes 0.4 thou/uL (0.11-0.59); #Neutrophils 11.9 thou/uL (1.40-6.50); %Basophils 0.3 % (0.0-1.0); %Eosinophils 1.2 % (0.0-10.0); %Lymphocytes 4.8 % (21.0-51.0); %Monocytes 2.8 % (0.0-10.0); %Neutrophils 87.3 % (42.0-75.0); Hematocrit 24.7 % (42.0-52.0); Hemoglobin 8.3 g/dL (14.0-18.0); Mean Corpuscular HGB CONC 33.6 g/dL (32.0-36.0); Mean Corpuscular Volume 80.5 fl (78.0-98.0); Platelet Count 90 10x3/uL (130-400); RBC Distribution Width 19.9 % (11.5-14.5); Red Blood Cell (RBC) Count 3.07 mill/uL (4.70-6.10); White Blood Cell (WBC) Count 13.7 10x3/uL (4.8-10.8)
[2023-06-20 00:52] LABS: INR-International Normal Ratio 1.2; Prothrombin Time 15.5 sec (12.0-14.7)
[2023-06-20] MEDS: Piperacillin/Tazobactam 3.375 GM in Sodium Chloride 0.9% 100 ML IVPB SCH ×2 (09:25→14:54)
[2023-06-20] MEDS: Potassium Chloride 20 MEQ TAB PO SCH ×2 (09:26→17:34)
[2023-06-20] MEDS: Spironolactone 25 MG TAB PO SCH (09:26)
[2023-06-20] MEDS: Saccharomyces boulardii 250 MG CAP PO SCH (09:26)
[2023-06-20] MEDS: Sodium Bicarbonate Tab 325 MG TAB PO SCH ×2 (09:26→21:26)
[2023-06-20] MEDS: Sucralfate 1 GM TAB PO SCH ×4 (09:27→21:26)
[2023-06-20] MEDS: Tamsulosin HCl 0.4 MG CAP PO SCH (09:27)
[2023-06-20] MEDS: Pregabalin 50 MG CAP PO SCH (09:27)
[2023-06-20 11:50] LABS: Anion Gap 16 mmol/L (10-20); BUN (Urea Nitrogen) 56 mg/dL (8.4-25.7); BUN/Creatinine Ratio 19.11; Calc. Creatinine Clearance 43 mL/min (70-130); Calcium 8.4 mg/dL (7.8-10.44); Carbon Dioxide 23 mmol/L (23-31); Chloride 102 mmol/L (98-107); Estimated GFR 22; Glucose 168 mg/dL (83-110); Phosphorus 3.4 mg/dL (2.3-4.7); Sodium 137 mmol/L (136-145)
[2023-06-20] MEDS: HYDROcodone/Acetaminophen 5/325 mg Tablet PO PRN (12:23)
[2023-06-20] MEDS ORDERED: Torsemide 10 MG TAB PO SCH (12:45)
[2023-06-20] MEDS ORDERED: Spironolactone 25 MG TAB PO SCH (13:00)
[2023-06-20] MEDS: Morphine 2 MG/ML VIAL SLOW IVP PRN ×2 (15:54→21:25)
[2023-06-21] MEDS: Piperacillin/Tazobactam 3.375 GM in Sodium Chloride 0.9% 100 ML IVPB SCH ×3 (00:12→16:32)
[2023-06-21 07:17] LABS: #Eosinphils 0.2 thou/uL (0.0-0.7); #Monocytes 0.5 thou/uL (0.11-0.59); #Neutrophils 9.9 thou/uL (1.40-6.50); %Basophils 0.3 % (0.0-1.0); %Eosinophils 1.3 % (0.0-10.0); %Lymphocytes 7.5 % (21.0-51.0); %Monocytes 3.9 % (0.0-10.0); %Neutrophils 83.4 % (42.0-75.0); Hematocrit 25.9 % (42.0-52.0); Hemoglobin 8.4 g/dL (14.0-18.0); Mean Corpuscular HGB CONC 32.4 g/dL (32.0-36.0); Mean Corpuscular Hemoglobin 26.1 pg (27.0-31.0); Mean Corpuscular Volume 80.4 fl (78.0-98.0); RBC Distribution Width 20.5 % (11.5-14.5); Red Blood Cell (RBC) Count 3.22 mill/uL (4.70-6.10); White Blood Cell (WBC) Count 11.9 10x3/uL (4.8-10.8)
[2023-06-21 07:18] LABS: Albumin 2.9 g/dL (3.4-4.8); Anion Gap 17 mmol/L (10-20); BUN (Urea Nitrogen) 54 mg/dL (8.4-25.7); BUN/Creatinine Ratio 18.31; Calc. Creatinine Clearance 43 mL/min (70-130); Calcium 8.7 mg/dL (7.8-10.44); Carbon Dioxide 24 mmol/L (23-31); Chloride 103 mmol/L (98-107); Estimated GFR 22; Glucose 131 mg/dL (83-110); Phosphorus 3.3 mg/dL (2.3-4.7); Potassium 4.1 mmol/L (3.5-5.1); Sodium 140 mmol/L (136-145)
[2023-06-21 07:41] LABS: Platelet Count 89 10x3/uL (130-400)
[2023-06-21] MEDS: Sucralfate 1 GM TAB PO SCH ×4 (09:16→21:13)
[2023-06-21] MEDS: Spironolactone 25 MG TAB PO SCH (09:27)
[2023-06-21] MEDS: Pregabalin 50 MG CAP PO SCH (09:27)
[2023-06-21] MEDS: Tamsulosin HCl 0.4 MG CAP PO SCH (09:29)
[2023-06-21] MEDS: Sodium Bicarbonate Tab 325 MG TAB PO SCH ×2 (09:29→21:13)
[2023-06-21] MEDS: Saccharomyces boulardii 250 MG CAP PO SCH (09:29)
[2023-06-21] MEDS: Fluconazole 100 MG TAB PO SCH ×2 (09:31→09:32)
[2023-06-21] MEDS ORDERED: Torsemide 10 MG TAB PO SCH (09:45)
[2023-06-21] MEDS: HYDROcodone/Acetaminophen 5/325 mg Tablet PO PRN (09:48)
[2023-06-21] MEDS ORDERED: Albumin 25% 25 GM (100 mL) BOT IVPB SCH (10:30)
[2023-06-21] MEDS: Potassium Chloride 20 MEQ TAB PO SCH ×3 (12:34→16:54)
[2023-06-21] MEDS: Albumin 25% 25 GM (100 mL) BOT IVPB SCH ×2 (14:03→21:13)
[2023-06-22] MEDS: Piperacillin/Tazobactam 3.375 GM in Sodium Chloride 0.9% 100 ML IVPB SCH ×2 (01:00→08:48)
[2023-06-22 08:48] LABS: Albumin 3.2 g/dL (3.4-4.8); Anion Gap 21 mmol/L (10-20); BUN (Urea Nitrogen) 54 mg/dL (8.4-25.7); BUN/Creatinine Ratio 18.56; Calc. Creatinine Clearance 43 mL/min (70-130); Calcium 8.9 mg/dL (7.8-10.44); Carbon Dioxide 16 mmol/L (23-31); Chloride 111 mmol/L (98-107); Estimated GFR 22; Glucose 117 mg/dL (83-110); Phosphorus 3.8 mg/dL (2.3-4.7); Potassium 5.4 mmol/L (3.5-5.1); Sodium 143 mmol/L (136-145)
[2023-06-22] MEDS: Potassium Chloride 20 MEQ TAB PO SCH ×2 (08:49→16:47)
[2023-06-22] MEDS: Tamsulosin HCl 0.4 MG CAP PO SCH (08:49)
[2023-06-22] MEDS: Sodium Bicarbonate Tab 325 MG TAB PO SCH ×3 (08:49→21:10)
[2023-06-22] MEDS: Spironolactone 25 MG TAB PO SCH (08:49)
[2023-06-22] MEDS: Pregabalin 50 MG CAP PO SCH (08:50)
[2023-06-22] MEDS: Saccharomyces boulardii 250 MG CAP PO SCH (08:50)
[2023-06-22] MEDS: Isosorbide Mononitrate 60 MG ER.TAB PO SCH (08:50)
[2023-06-22] MEDS: Fluconazole 100 MG TAB PO SCH (08:50)
[2023-06-22] MEDS ORDERED: Ferrous Sulfate 325 MG TAB PO SCH (09:00)
[2023-06-22] MEDS: Acetaminophen 325 MG TAB PO PRN (09:15)
[2023-06-22] MEDS: Morphine 2 MG/ML VIAL SLOW IVP PRN (12:04)
[2023-06-22] MEDS: Torsemide 10 MG TAB PO SCH (13:19)
[2023-06-22] MEDS ORDERED: Amoxicillin/Potassium Clav 875 MG TAB PO SCH (21:00)
[2023-06-22] MEDS: Rosuvastatin 20 MG TAB PO SCH (21:10)
[2023-06-22] MEDS: Amoxicillin/Potassium Clav 500 MG TAB PO SCH (21:13)
[2023-06-23] MEDS: Sodium Bicarbonate Tab 325 MG TAB PO SCH ×3 (08:25→20:47)
[2023-06-23] MEDS: Amoxicillin/Potassium Clav 500 MG TAB PO SCH ×2 (08:25→20:47)
[2023-06-23] MEDS: Tamsulosin HCl 0.4 MG CAP PO SCH (08:25)
[2023-06-23] MEDS: Torsemide 10 MG TAB PO SCH (08:26)
[2023-06-23] MEDS: Saccharomyces boulardii 250 MG CAP PO SCH (08:26)
[2023-06-23] MEDS: Ferrous Sulfate 325 MG TAB PO SCH (08:26)
[2023-06-23] MEDS: Isosorbide Mononitrate 60 MG ER.TAB PO SCH (08:27)
[2023-06-23] MEDS: Potassium Chloride 20 MEQ TAB PO SCH (08:27)
[2023-06-23] MEDS: Pregabalin 50 MG CAP PO SCH (08:27)
[2023-06-23] MEDS: Fluconazole 100 MG TAB PO SCH (08:27)
[2023-06-23] MEDS: Albumin 25% 25 GM (100 mL) BOT IVPB SCH ×2 (13:25→17:30)
[2023-06-23 13:39] LABS: #Eosinphils 0.2 thou/uL (0.0-0.7); #Monocytes 0.4 thou/uL (0.11-0.59); #Neutrophils 8.8 thou/uL (1.40-6.50); %Basophils 0.4 % (0.0-1.0); %Eosinophils 1.7 % (0.0-10.0); %Lymphocytes 7.6 % (21.0-51.0); %Monocytes 4.3 % (0.0-10.0); %Neutrophils 85.1 % (42.0-75.0); Hematocrit 26.3 % (42.0-52.0); Hemoglobin 8.2 g/dL (14.0-18.0); Mean Corpuscular HGB CONC 31.2 g/dL (32.0-36.0); Mean Corpuscular Hemoglobin 26.5 pg (27.0-31.0); Mean Corpuscular Volume 85.1 fl (78.0-98.0); Platelet Count 98 10x3/uL (130-400); RBC Distribution Width 21.7 % (11.5-14.5); Red Blood Cell (RBC) Count 3.09 mill/uL (4.70-6.10); White Blood Cell (WBC) Count 10.3 10x3/uL (4.8-10.8)
[2023-06-23 14:05] LABS: Anion Gap 14 mmol/L (10-20); BUN (Urea Nitrogen) 44 mg/dL (8.4-25.7); BUN/Creatinine Ratio 17.67; Calc. Creatinine Clearance 50 mL/min (70-130); Calcium 8.8 mg/dL (7.8-10.44); Carbon Dioxide 24 mmol/L (23-31); Chloride 108 mmol/L (98-107); Estimated GFR 26; Glucose 139 mg/dL (83-110); Potassium 4.8 mmol/L (3.5-5.1); Sodium 141 mmol/L (136-145)
[2023-06-23] MEDS: Rosuvastatin 20 MG TAB PO SCH (20:46)
[2023-06-23] MEDS: HYDROcodone/Acetaminophen 5/325 mg Tablet PO PRN (22:13)
[2023-06-24] MEDS: Albumin 25% 25 GM (100 mL) BOT IVPB SCH ×2 (00:43→06:20)
[2023-06-24] MEDS: HYDROcodone/Acetaminophen 5/325 mg Tablet PO PRN ×3 (04:14→22:02)
[2023-06-24] MEDS: Tamsulosin HCl 0.4 MG CAP PO SCH (09:02)
[2023-06-24] MEDS: Fluconazole 100 MG TAB PO SCH (09:02)
[2023-06-24] MEDS: Saccharomyces boulardii 250 MG CAP PO SCH (09:02)
[2023-06-24] MEDS: Ferrous Sulfate 325 MG TAB PO SCH (09:02)
[2023-06-24] MEDS: Torsemide 10 MG TAB PO SCH (09:02)
[2023-06-24] MEDS: Pregabalin 50 MG CAP PO SCH (09:02)
[2023-06-24] MEDS: Sodium Bicarbonate Tab 325 MG TAB PO SCH ×3 (09:02→20:22)
[2023-06-24] MEDS: Amoxicillin/Potassium Clav 500 MG TAB PO SCH ×2 (09:03→20:23)
[2023-06-24] MEDS: Aspirin 81 mg Enteric Coated Tablet PO SCH (09:03)
[2023-06-24] MEDS: Isosorbide Mononitrate 60 MG ER.TAB PO SCH (09:03)
[2023-06-24 11:27] LABS: #Eosinphils 0.2 thou/uL (0.0-0.7); #Monocytes 0.5 thou/uL (0.11-0.59); #Neutrophils 8.6 thou/uL (1.40-6.50); %Basophils 0.3 % (0.0-1.0); %Eosinophils 1.8 % (0.0-10.0); %Lymphocytes 8.6 % (21.0-51.0); %Monocytes 4.8 % (0.0-10.0); %Neutrophils 83.3 % (42.0-75.0); Hematocrit 25.2 % (42.0-52.0); Hemoglobin 7.9 g/dL (14.0-18.0); Mean Corpuscular HGB CONC 31.3 g/dL (32.0-36.0); Mean Corpuscular Hemoglobin 26.6 pg (27.0-31.0); Mean Corpuscular Volume 84.8 fl (78.0-98.0); RBC Distribution Width 21.5 % (11.5-14.5); Red Blood Cell (RBC) Count 2.97 mill/uL (4.70-6.10); White Blood Cell (WBC) Count 10.3 10x3/uL (4.8-10.8)
[2023-06-24 11:30] LABS: Platelet Count 107 10x3/uL (130-400)
[2023-06-24 11:42] LABS: Anion Gap 14 mmol/L (10-20); BUN (Urea Nitrogen) 40 mg/dL (8.4-25.7); Calc. Creatinine Clearance 51 mL/min (70-130); Calcium 9.3 mg/dL (7.8-10.44); Carbon Dioxide 24 mmol/L (23-31); Chloride 108 mmol/L (98-107); Estimated GFR 27; Glucose 107 mg/dL (83-110); Potassium 4.6 mmol/L (3.5-5.1); Sodium 141 mmol/L (136-145)
[2023-06-24 12:43] LABS: Anisocytosis MODERATE=16-30 cells HPF (0-5); CellaVision Operator ID LAB.KB; Hypochromia SLIGHT = 6-15 cells HPF (0-5); Ovalocytes SLIGHT = 2-5 cells HPF (0-1); Platelet Adequacy Comment Platelets Decreased; Polychromasia SLIGHT = 2-3 cells HPF (0-2)
[2023-06-24] MEDS: Rosuvastatin 20 MG TAB PO SCH (20:22)
[2023-06-25] MEDS: HYDROcodone/Acetaminophen 5/325 mg Tablet PO PRN ×2 (04:04→13:18)
[2023-06-25] MEDS: Saccharomyces boulardii 250 MG CAP PO SCH (08:25)
[2023-06-25] MEDS: Ferrous Sulfate 325 MG TAB PO SCH (08:25)
[2023-06-25] MEDS: Tamsulosin HCl 0.4 MG CAP PO SCH (08:25)
[2023-06-25] MEDS: Isosorbide Mononitrate 60 MG ER.TAB PO SCH (08:25)
[2023-06-25] MEDS: Aspirin 81 mg Enteric Coated Tablet PO SCH (08:26)
[2023-06-25] MEDS: Sodium Bicarbonate Tab 325 MG TAB PO SCH ×3 (08:26→21:39)
[2023-06-25] MEDS: Pregabalin 50 MG CAP PO SCH (08:26)
[2023-06-25] MEDS: Torsemide 10 MG TAB PO SCH (08:26)
[2023-06-25] MEDS: Amoxicillin/Potassium Clav 500 MG TAB PO SCH ×2 (08:26→21:39)
[2023-06-25] MEDS ORDERED: Fluconazole 100 MG TAB PO SCH (09:30)
[2023-06-25 12:38] LABS: Anion Gap 17 mmol/L (10-20); BUN (Urea Nitrogen) 38 mg/dL (8.4-25.7); Calc. Creatinine Clearance 51 mL/min (70-130); Calcium 8.7 mg/dL (7.8-10.44); Carbon Dioxide 18 mmol/L (23-31); Chloride 110 mmol/L (98-107); Estimated GFR 27; Glucose 103 mg/dL (83-110); Sodium 139 mmol/L (136-145)
[2023-06-25 12:51] LABS: Potassium 6.2 mmol/L (3.5-5.1)
[2023-06-25] MEDS ORDERED: Furosemide 40 MG TAB PO SCH (14:00)
[2023-06-25 15:54] LABS: Chloride 112 mmol/L (98-107); Sodium 140 mmol/L (136-145)
[2023-06-25 15:55] LABS: Calcium 8.8 mg/dL (7.8-10.44); Glucose 118 mg/dL (83-110)
[2023-06-25 15:57] LABS: Carbon Dioxide 14 mmol/L (23-31)
[2023-06-25 15:59] LABS: BUN (Urea Nitrogen) 35 mg/dL (8.4-25.7); Calc. Creatinine Clearance 51 mL/min (70-130); Estimated GFR 27
[2023-06-25 16:00] LABS: Anion Gap 20 mmol/L (10-20)
[2023-06-25] MEDS ORDERED: Sodium Polystyrene Sulfonate 15 GM (60 mL) BOT PO SCH (16:12)
[2023-06-25] MEDS ORDERED: Insulin Regular 300 UNITS/3 ML VIAL IVP SCH (16:13)
[2023-06-25] MEDS ORDERED: Dextrose 50% Abboject 50 ML SYRINGE SLOW IVP SCH (16:13)
[2023-06-25] MEDS ORDERED: Sodium Bicarbonate Tab 325 MG TAB PO SCH (16:15)
[2023-06-25] MEDS: Rosuvastatin 20 MG TAB PO SCH (21:39)
[2023-06-25 22:17] LABS: Anion Gap 14 mmol/L (10-20); BUN (Urea Nitrogen) 35 mg/dL (8.4-25.7); Calc. Creatinine Clearance 52 mL/min (70-130); Calcium 9.1 mg/dL (7.8-10.44); Carbon Dioxide 23 mmol/L (23-31); Chloride 108 mmol/L (98-107); Estimated GFR 27; Glucose 115 mg/dL (83-110); Potassium 4.5 mmol/L (3.5-5.1); Sodium 140 mmol/L (136-145)
[2023-06-26] MEDS: Acetaminophen 325 MG TAB PO PRN (01:30)
[2023-06-26] MEDS: Pregabalin 50 MG CAP PO SCH (08:44)
[2023-06-26] MEDS: Aspirin 81 mg Enteric Coated Tablet PO SCH (08:44)
[2023-06-26] MEDS: Saccharomyces boulardii 250 MG CAP PO SCH (08:44)
[2023-06-26] MEDS: Ferrous Sulfate 325 MG TAB PO SCH (08:44)
[2023-06-26] MEDS: Sodium Bicarbonate Tab 325 MG TAB PO SCH ×3 (08:44→21:08)
[2023-06-26] MEDS: Isosorbide Mononitrate 60 MG ER.TAB PO SCH (08:44)
[2023-06-26] MEDS: Amoxicillin/Potassium Clav 500 MG TAB PO SCH ×2 (08:45→21:02)
[2023-06-26] MEDS: Tamsulosin HCl 0.4 MG CAP PO SCH (08:45)
[2023-06-26] MEDS: Torsemide 10 MG TAB PO SCH (08:45)
[2023-06-26] MEDS: HYDROcodone/Acetaminophen 5/325 mg Tablet PO PRN ×2 (08:48→21:02)
[2023-06-26] MEDS: EPOETIN ALFA-EPBX (ESRD) 10,000 UNITS/ML VIAL SC SCH (08:49)
[2023-06-26] MEDS: Morphine 2 MG/ML VIAL SLOW IVP PRN (11:43)
[2023-06-26] MEDS: Rosuvastatin 20 MG TAB PO SCH (21:02)
[2023-06-26] MEDS: Heparin 5,000 UNITS/ML VIAL SC SCH (21:04)
[2023-06-27] MEDS: Aspirin 81 mg Enteric Coated Tablet PO SCH (09:01)
[2023-06-27] MEDS: Ferrous Sulfate 325 MG TAB PO SCH (09:01)
[2023-06-27] MEDS: Heparin 5,000 UNITS/ML VIAL SC SCH ×2 (09:01→20:45)
[2023-06-27] MEDS: Pregabalin 50 MG CAP PO SCH (09:02)
[2023-06-27] MEDS: Tamsulosin HCl 0.4 MG CAP PO SCH (09:03)
[2023-06-27] MEDS: Sodium Bicarbonate Tab 325 MG TAB PO SCH ×3 (09:03→20:44)
[2023-06-27] MEDS: Saccharomyces boulardii 250 MG CAP PO SCH (09:03)
[2023-06-27] MEDS: Torsemide 10 MG TAB PO SCH (09:04)
[2023-06-27 09:10] LABS: #Eosinphils 0.3 thou/uL (0.0-0.7); #Monocytes 0.4 thou/uL (0.11-0.59); #Neutrophils 7.2 thou/uL (1.40-6.50); %Basophils 0.5 % (0.0-1.0); %Lymphocytes 8.1 % (21.0-51.0); %Monocytes 4.6 % (0.0-10.0); %Neutrophils 83.1 % (42.0-75.0); Hematocrit 26.7 % (42.0-52.0); Hemoglobin 8.1 g/dL (14.0-18.0); Mean Corpuscular HGB CONC 30.3 g/dL (32.0-36.0); Mean Corpuscular Hemoglobin 26.2 pg (27.0-31.0); Mean Corpuscular Volume 86.4 fl (78.0-98.0); Platelet Count 119 10x3/uL (130-400); RBC Distribution Width 21.2 % (11.5-14.5); Red Blood Cell (RBC) Count 3.09 mill/uL (4.70-6.10); White Blood Cell (WBC) Count 8.7 10x3/uL (4.8-10.8)
[2023-06-27 09:23] LABS: ALT (SGPT) 13 U/L (8-55); AST (SGOT) 23 U/L (5-34); Albumin 3.3 g/dL (3.4-4.8); Alkaline Phosphatase 67 U/L (40-110); Anion Gap 15 mmol/L (10-20); BUN (Urea Nitrogen) 29 mg/dL (8.4-25.7); Bilirubin, Total 0.3 mg/dL (0.2-1.2); Calc. Creatinine Clearance 49 mL/min (70-130); Calcium 8.9 mg/dL (7.8-10.44); Carbon Dioxide 22 mmol/L (23-31); Chloride 108 mmol/L (98-107); Estimated GFR 26; Globulin 3.6 g/dL (2.4-3.5); Glucose 86 mg/dL (83-110); Potassium 3.9 mmol/L (3.5-5.1); Protein, Total 6.9 g/dL (5.8-8.1); Sodium 141 mmol/L (136-145)
[2023-06-27] MEDS: Amoxicillin/Potassium Clav 500 MG TAB PO SCH ×2 (11:01→20:45)
[2023-06-27] MEDS: Isosorbide Mononitrate 60 MG ER.TAB PO SCH (11:02)
[2023-06-27] MEDS: Rosuvastatin 20 MG TAB PO SCH (20:45)
[2023-06-27] MEDS: HYDROcodone/Acetaminophen 5/325 mg Tablet PO PRN (20:56)
[2023-06-28] MEDS: Acetaminophen 325 MG TAB PO PRN (08:53)
[2023-06-28] MEDS: Aspirin 81 mg Enteric Coated Tablet PO SCH (08:54)
[2023-06-28] MEDS: Torsemide 10 MG TAB PO SCH (08:54)
[2023-06-28] MEDS: Sodium Bicarbonate Tab 325 MG TAB PO SCH ×3 (08:54→21:04)
[2023-06-28] MEDS: Saccharomyces boulardii 250 MG CAP PO SCH (08:54)
[2023-06-28] MEDS: Tamsulosin HCl 0.4 MG CAP PO SCH (08:54)
[2023-06-28] MEDS: Heparin 5,000 UNITS/ML VIAL SC SCH ×2 (08:54→21:05)
[2023-06-28] MEDS: Ferrous Sulfate 325 MG TAB PO SCH (08:54)
[2023-06-28] MEDS: Pregabalin 50 MG CAP PO SCH (08:54)
[2023-06-28] MEDS: Isosorbide Mononitrate 60 MG ER.TAB PO SCH (08:55)
[2023-06-28] MEDS: Amoxicillin/Potassium Clav 500 MG TAB PO SCH ×2 (08:55→21:05)
[2023-06-28] MEDS: Morphine 2 MG/ML VIAL SLOW IVP PRN (10:38)
[2023-06-28] MEDS: HYDROcodone/Acetaminophen 5/325 mg Tablet PO PRN ×2 (12:15→21:03)
[2023-06-28] MEDS: Rosuvastatin 20 MG TAB PO SCH (21:04)
[2023-06-29] MEDS: HYDROcodone/Acetaminophen 5/325 mg Tablet PO PRN ×2 (05:38→11:52)
[2023-06-29] MEDS: Tamsulosin HCl 0.4 MG CAP PO SCH (09:30)
[2023-06-29] MEDS: Isosorbide Mononitrate 60 MG ER.TAB PO SCH (09:30)
[2023-06-29] MEDS: Heparin 5,000 UNITS/ML VIAL SC SCH (09:30)
[2023-06-29] MEDS: Torsemide 10 MG TAB PO SCH (09:30)
[2023-06-29] MEDS: Pregabalin 50 MG CAP PO SCH (09:30)
[2023-06-29] MEDS: Aspirin 81 mg Enteric Coated Tablet PO SCH (09:30)
[2023-06-29] MEDS: Saccharomyces boulardii 250 MG CAP PO SCH (09:30)
[2023-06-29] MEDS: Amoxicillin/Potassium Clav 500 MG TAB PO SCH (09:31)
[2023-06-29] MEDS: Ferrous Sulfate 325 MG TAB PO SCH (09:31)
[2023-06-29] MEDS: Sodium Bicarbonate Tab 325 MG TAB PO SCH ×2 (12:14→16:27)
[2023-06-29 16:19] VITALS: BP 125/72; TEMP 98.6
== END 2023-06-29 18:54 | DRG 463 ==
LOC: ERS 19:19 → OBSVTOIN 22:42 → 2SE 22:42 → MSONC 06-15 12:28
PROVIDERS: ADMIT Internal Medicine; ATTEND Internal Medicine
PROC: 0J990ZZ Drainage of Buttock Subcutaneous Tissue and Fascia, Open Approach (ICD-10-PCS; 2023-06-09)
PROC: 3E033XZ Introduction of Vasopressor into Peripheral Vein, Percutaneous Approach (ICD-10-PCS; 2023-06-09)
PROC: 30233J1 Transfusion of Nonautologous Serum Albumin into Peripheral Vein, Percutaneous Approach (ICD-10-PCS; 2023-06-11)
PROC: 4A043R1 Measurement of Venous Saturation, Peripheral, Percutaneous Approach (ICD-10-PCS; 2023-06-12)
PROC: 5A09357 Assistance with Respiratory Ventilation, Less than 24 Consecutive Hours, Continuous Positive Airway Pressure (ICD-10-PCS; 2023-06-12)
PROC: 30233N1 Transfusion of Nonautologous Red Blood Cells into Peripheral Vein, Percutaneous Approach (ICD-10-PCS; 2023-06-15)
PROC: 0JB90ZZ Excision of Buttock Subcutaneous Tissue and Fascia, Open Approach (ICD-10-PCS; principal; 2023-06-18)
PROC: 4A033R1 Measurement of Arterial Saturation, Peripheral, Percutaneous Approach (ICD-10-PCS; 2023-06-18)
DX: M72.6 Necrotizing fasciitis (principal); I21.A1 Myocardial infarction type 2; L02.31 Cutaneous abscess of buttock; I50.32 Chronic diastolic (congestive) heart failure; I13.0 Hypertensive heart and chronic kidney disease with heart failure and stage 1 through stage 4 chronic kidney disease, or unspecified chronic kidney disease; E87.20 Acidosis, unspecified; Z68.41 Body mass index [BMI] 40.0-44.9, adult; B37.49 Other urogenital candidiasis; N17.9 Acute kidney failure, unspecified; Z51.5 Encounter for palliative care; R53.81 Other malaise; J44.9 Chronic obstructive pulmonary disease, unspecified; E87.6 Hypokalemia; E87.5 Hyperkalemia; R50.82 Postprocedural fever; G47.30 Sleep apnea, unspecified; I25.10 Atherosclerotic heart disease of native coronary artery without angina pectoris; G47.33 Obstructive sleep apnea (adult) (pediatric); N18.30 Chronic kidney disease, stage 3 unspecified; N40.1 Benign prostatic hyperplasia with lower urinary tract symptoms; E11.40 Type 2 diabetes mellitus with diabetic neuropathy, unspecified; R33.9 Retention of urine, unspecified; R40.0 Somnolence; D69.6 Thrombocytopenia, unspecified; M17.0 Bilateral primary osteoarthritis of knee; E27.8 Other specified disorders of adrenal gland; R80.9 Proteinuria, unspecified; B95.4 Other streptococcus as the cause of diseases classified elsewhere; R31.0 Gross hematuria; E83.39 Other disorders of phosphorus metabolism; K21.9 Gastro-esophageal reflux disease without esophagitis; E11.22 Type 2 diabetes mellitus with diabetic chronic kidney disease; D72.829 Elevated white blood cell count, unspecified; E66.01 Morbid (severe) obesity due to excess calories; Z95.0 Presence of cardiac pacemaker; Z79.82 Long term (current) use of aspirin; Z79.899 Other long term (current) drug therapy; Z88.8 Allergy status to other drugs, medicaments and biological substances; Z87.891 Personal history of nicotine dependence; Z82.49 Family history of ischemic heart disease and other diseases of the circulatory system; Z85.46 Personal history of malignant neoplasm of prostate; Z92.3 Personal history of irradiation; Z98.890 Other specified postprocedural states; Z95.818 Presence of other cardiac implants and grafts
CPT/HCPCS: 36415; 36416; 36430; 36600; 71045; 74018; 74177; 76705; 80048; 80053; 80069; 80202; 81001; 82040; 82550; 82570; 82728; 82805; 83036; 83540; 83550; 83605; 83735; 83880; 84100; 84145; 84156; 84300; 84484; 84540; 85025; 85027; 85610; 85730; 86140; 86850; 86900; 86901; 87040; 87070; 87076; 87086; 87205; 93005; 93010; 93970; 96365; 96367; 96375; 97139; J0171; J0692; J1170; J1644; J1815; J1940; J2270; J2272; J2405; J2543; J2704; J2916; J3010; J3370; J3370-JW; J3490; J7050; J7070; J7120; J7999; P9016; P9047; Q5105; Q9963; Q9967; S0020